=== PATIENT | male | born 1995 | race Caucasian/White ===

== ENCOUNTER 2016-12-11 14:53 | Emergency (ER) | payer BC ==
[2016-12-11 14:57] VITALS: BP 118/72; PULSE 70; RESP 14; TEMP 97.9; O2SAT 96
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
== END 2016-12-11 15:31 | disposition home or self-care (01) ==
DX: S06.0X9A Concussion with loss of consciousness of unspecified duration, initial encounter (principal); V18.0XXA Pedal cycle driver injured in noncollision transport accident in nontraffic accident, initial encounter; Y92.410 Unspecified street and highway as the place of occurrence of the external cause; Y99.8 Other external cause status; Y93.89 Activity, other specified